=== PATIENT | female | born 1965 | race Caucasian/White ===

== ENCOUNTER 2023-07-28 12:55 | Emergency (ER) | payer BC, SELFPAY ==
[2023-07-28 12:57] VITALS: BP 158/100
--- NOTE | 2023-07-28 13:49 | ED.GENMED ---
History of Present Illness
General
Chief Complaint: Breathing Problem
Time Seen by Provider: 07/28/23 13:41
Travel History
Have you had any contact with someone who has COVID-19?: No
Do you have any symptoms of coronavirus? Fever > 100 degrees, chills, cough, shortness of breath, sore throat, loss of taste or smell, muscle aches, or headache?: No
History of Present Illness
History of Present Illness:
HPI: This morning, the patient woke with headache and dizziness. This is not normal for her. She has a history of breast cancer. She feels somewhat anxious. She has a history of sarcoidosis but this does not really affect her much.
EXAM:
GENERAL: Well appearing in no distress but appears somewhat anxious
HEENT: Moist oral mucosa
CARDIOVASCULAR: No murmurs, normal heart rate, regular rhythm, No chest wall tenderness, surgical scar noted to the left posterior thorax related to breast reconstruction
PULMONARY: No respiratory distress, breath sounds are clear and equal
ABDOMEN: Soft with no peritoneal signs, no tenderness
NEUROLOGIC: Excellent strength all extremities, no coordination deficits
PSYCHIATRIC: Appropriate mental status, normal insight and judgement, appears
EXTREMITIES: Nontender, no edema, moves all extremities equally
SKIN: No rash, no lesions
TIME OF INITIAL ENCOUNTER: 1:45 PM
NUMBER AND COMPLEXITY OF PROBLEMS ADDRESSED AT THE ENCOUNTER
� Chronic conditions affecting care: History of breast cancer, she reports sarcoidosis was noted in the removed lymph node when she had the mastectomy
� Acute Exacerbation and/or Progression of Chronic Illness: This is an acute problem
� Differential Diagnosis includes: Anxiety, metastatic lesions, electrolyte abnormality, anxiety
AMOUNT AND/OR COMPLEXITY OF DATA TO BE REVIEWED AND ANALYZED
� I performed an independent evaluation of and my interpretation is:
EKG: Sinus 22, normal axis, incomplete right bundle branch block, nonspecific ST abnormality
CT: Brain CT shows no acute abnormality
X-rays:
Laboratory Studies: CBC normal, chemistries unremarkable.
Other:
� Review of other/old records: No old records available for review
� Clinical information was obtained by an independent historian: I spoke to family member at bedside
� Prescriptions/Medications Considered but not given:
� Further testing considered but not performed:
RISK OF COMPLICATIONS AND/OR MORBIDITY OR MORTALITY OF PATIENT MANAGEMENT
� Social determinants of health affecting care: Lives at home
� Discussion with other providers:
� Escalation of care including admission/observation vs risk of discharge considered: Given patient's history of breast cancer with new headache that she does not normally get, CT imaging obtained. CT imaging negative, basic
labs unremarkable. On reassessment at 5:30 PM, the patient does have some vague dizziness but overall feels somewhat improved after IV fluids. She appears comfortable. She also brought up the possibly of sleep apnea but states she will follow-up
with somebody for this.
Phy Exam
Physical Exam
Physical Exam:
See HPI
Scores
Heart Failure Risk
Heart Failure Risk Score: Not Applicable
Course
Orders/Labs/Results
Orders:
Orders
07/28/23 13:01
ECG [Electrocardiogram (*1)] Urgent
Reason for Study: Palpitations
EKG- Treatment ONCE
07/28/23 13:49
CT Head W/o Iv Contrast Urgent
Comment:
Reason For Exam: new RAO and dizzy, h/o breast CA
0.9% Sodium Chloride 1000 ml [Nss] 1,000 ml IV BOLUS
07/28/23 14:34
Complete Blood Count/With Diff Urgent
07/28/23 16:25
Basic Metabolic Panel Urgent
07/28/23 14:34
07/28/23 16:25
Vital Signs
Initial and Last Documented VS:
Initial Vital Signs
Temp Pulse Resp BP Pulse Ox
98.1 F 97 18 158/100 99
07/28/23 12:57 07/28/23 12:57 07/28/23 12:57 07/28/23 12:57 07/28/23 12:57
Last Documented Vital Signs
Temp Pulse Resp BP Pulse Ox
98.1 F 97 18 158/100 98
07/28/23 12:57 07/28/23 12:57 07/28/23 12:57 07/28/23 12:57 07/28/23 17:17
*Critical Care Note
Total Time (30-74mins, 75-104mins- exclusive of procedures): Not Applicable
ED Attending Note
-
Portions of this chart may have been created with voice recognition software.� Occasional wrong word or��sound alike� substitutions may have occurred due to the inherent limitations of voice recognition software.
Discharge Plan
Departure
Patient Disposition: Home (Routine Discharge)
Date of Disposition: 07/28/23
Time of Disposition: 17:26
Patient with high blood pressure during this ER visit?: Yes
Discharge Problem:
Dizziness
Instructions: Dizziness
Referrals:
Mason Boyle MD [Family Provider] -
Activity Restrictions/Additional Instructions:
The cause of your symptoms is unclear. The complete blood cell count and basic chemistry labs are all normal. The CAT scan of the brain shows no acute abnormality. Follow-up your primary care doctor if worse.
Interventions
Interventions:
*Risk Screen - Suicide Last Done: 07/28/23 17:17
*General Assessment Last Done: 07/28/23 17:17
*Neglect/Abuse Screening Last Done: 07/28/23 17:17
ED- Fall Risk Assessment Last Done: 07/28/23 17:17
*ED COVID-19 Vaccine History Last Done: 07/28/23 13:01
ED- Cardiac Assessment Last Done: 07/28/23 17:17
ED- Pulmonary Assessment Last Done: 07/28/23 17:17
Discharge Date and Time
Print Language: NIGERIAN
[2023-07-28] MEDS: NSS 1000 IV (14:34)
[2023-07-28 14:41] LABS: % Eosinophils 2.6 % (0-6); % Immature Granulocytes 0.3 % (0-0.5); % Lymphocytes 20.5 % (20.5-51.1); % Monocytes 7.3 % (1.7-9.3); % Neutrophils 68.3 % (42.2-75.2); Absolute Basophils 0.1 10^3/uL (0-0.2); Absolute Eosinophils 0.2 10^3/uL (0-0.7); Absolute Lymphocytes 1.4 10^3/uL (1.2-3.4); Absolute Monocytes 0.5 10^3/uL (0.1-0.6); Absolute Neutrophils 4.8 10^3/uL (1.4-6.5); Hematocrit 45.4 % (37.0-47.0); Hemoglobin 15.4 g/dL (12.0-16.0); Mean Corp Hgb Conc. 33.9 g/dL (33.0-37.0); Mean Corpuscular Hgb 29.3 pg (27.0-31.0); Mean Corpuscular Volume 86.5 fL (81.0-99.0); Mean Platelet Volume 8.2 fL (7.4-10.4); Nucleated Red Blood Cells % 0 %; Platelet Count 313 10^3/uL (130-400); Red Blood Cell Count 5.25 10^6/uL (4.20-5.40); Red Cell Dist. Width 12.4 % (11.5-14.5)
[2023-07-28 16:58] LABS: Blood Urea Nitrogen 13 mg/dl (7-17); Calcium 9.3 mg/dl (8.4-10.2); Carbon Dioxide 27 mmol/L (22-30); Chloride 104 mmol/L (98-107); Glucose 85 mg/dl (70-99); Potassium 4.4 mmol/L (3.5-5.1); Sodium 137 mmol/L (135-145); eGFR > 60.00
[2023-07-28] MEDS: TYLENOL 650 MG PO (17:52)
== END 2023-07-28 18:09 | disposition home or self-care (01) ==
LOC: EMR 12:55
PROVIDERS: EMERGENCY PHYSICIAN Emergency Medicine; FAMILY PHYSICIAN Internal Medicine
DX: R42 Dizziness and giddiness (principal); R51.9 Headache, unspecified; R03.0 Elevated blood-pressure reading, without diagnosis of hypertension; D86.9 Sarcoidosis, unspecified; Z85.3 Personal history of malignant neoplasm of breast
CPT/HCPCS: 99285; 96360; 70450; 80048; 85025; 93005

== ENCOUNTER → 2025-01-22 14:58 | Outpatient (REF) | payer BC, SELFPAY | LOC: DHSLP 14:58 | PROVIDERS: ATTENDING PHYSICIAN Internal Medicine; FAMILY PHYSICIAN Internal Medicine | DX: G47.33 Obstructive sleep apnea (adult) (pediatric) (principal) | CPT/HCPCS: 95810 ==